=== PATIENT | male | born 1985 | race American Indian/Alaskan Native ===

== ENCOUNTER 2018-06-11 12:36 | Emergency (ER) | payer MEDICAID ==
[2018-06-11 13:03] VITALS: BP 121/80; PULSE 82; RESP 16; TEMP 97.5; O2SAT 97
--- NOTE | 2018-06-11 17:13 | C.PDOC ---
History Of Present Illness 32 y/o male comes in to ED requesting a medical checkup. Patient also has paperwork from the [facility] [place] for his primary doctor to sign for disability. Patient has no physical complaints at this time. Chief Complaint (Nursing): Medical Clearance History Per: Patient History/Exam Limitations: no limitations Past Medical History Reviewed: Historical Data, Nursing Documentation, Vital Signs Vital Signs: Last Vital Signs Temp 97.5 F L 06/11/18 13:02 Pulse 82 06/11/18 13:02 Resp 16 06/11/18 13:02 BP 121/80 06/11/18 13:02 Pulse Ox 97 06/11/18 13:02 - Medical History PMH: Anxiety, Asthma, Bipolar Disorder, Depression Family History: States: No Known Family Hx - Social History Hx Alcohol Use: Yes Hx Substance Use: No - Immunization History Hx Tetanus Toxoid Vaccination: No Hx Influenza Vaccination: No Hx Pneumococcal Vaccination: No Review Of Systems Except As Marked, All Systems Reviewed And Found Negative. Constitutional: Negative for: Fever, Chills Respiratory: Negative for: Shortness of Breath Gastrointestinal: Negative for: Nausea, Vomiting Neurological: Negative for: Weakness Physical Exam - Physical Exam Appears: Non-toxic, No Acute Distress Skin: Warm, Dry Head: Atraumatic, Normacephalic Eye(s): bilateral: Normal Inspection Oral Mucosa: Moist Neck: Supple Cardiovascular: Rhythm Regular, No Murmur Respiratory: Normal Breath Sounds, No Rales, No Rhonchi Gastrointestinal/Abdominal: Soft, No Tenderness Extremity: Bilateral: Atraumatic, Normal ROM Neurological/Psych: Oriented x3, Normal Speech ED Course And Treatment O2 Sat by Pulse Oximetry: 97 (RA) Pulse Ox Interpretation: Normal Medical Decision Making Medical Decision Making: Progress: Instructed patient to follow up with clinic for paperwork to be filled out. Disposition - Disposition Referrals: [facility] [Outside] [facility] [Outside] Disposition: HOME/ ROUTINE Disposition Time: 13:20 Condition: GOOD Additional Instructions: ALONSO MULLEN, thank you for letting us take care of you today. The emergency medical care you received today was directed at your acute symptoms. If you were prescribed any medication, please fill it and take as directed. It may take several days for your symptoms to resolve. Return to the Emergency Department if your symptoms worsen, do not improve, or if you have any other problems. Please contact your doctor or call one of the physicians/clinics you have been referred to that are listed on the Patient Visit Information form that is included in your discharge packet. Bring any paperwork you were given at discharge with you along with any medications you are taking to your follow up visit. Our treatment cannot replace ongoing medical care by a primary care provider outside of the emergency department. Thank you for allowing the [facility] team to be part of your care today. Follow up with the clinic for outpatient care and management. Prescriptions: Albuterol Sulfate [Ventolin Hfa] 2 puff IH Q4 PRN #1 unit PRN Reason: wheeze Instructions: Asthma, Adult (DC) Forms: [employer] (Frisian) - Clinical Impression Clinical Impression: Medical assessment - Scribe Statement The provider has reviewed the documentation as recorded by the Yelitzaibdirk Mc Provider Attestation: All medical record entries made by the Scribe were at my direction and personally dictated by me. I have reviewed the chart and agree that the record accurately reflects my personal performance of the history, physical exam, medical decision making, and the department course for this patient. I have also personally directed, reviewed, and agree with the discharge instructions and disposition.
== END 2018-06-11 13:46 | disposition home or self-care (01) ==
LOC: C.ER 12:36
DX: Z00.00 Encounter for general adult medical examination without abnormal findings (principal)